=== PATIENT | female | born 1955 | race Caucasian/White ===

== ENCOUNTER 2019-05-30 22:03 | Emergency (ER) | payer BC ==
[2019-05-30 22:13] VITALS: BP 155/73; PULSE 96
[2019-05-30] MEDS ORDERED: Bacitracin Oint 1 GM U/D Packet TOP ONE (22:19)
[2019-05-30] MEDS ORDERED: Lidocaine 1% with EPINEPHrine 1:100,000 20 ML MDV INJECT ONE (22:19)
--- NOTE | 2019-05-30 22:25 | EDM.PDOC ---
ED HPI GENERAL MEDICAL PROBLEM - General Chief Complaint: Laceration Stated Complaint: FALL Time Seen by Provider: 05/30/19 22:11 - History of Present Illness INITIAL COMMENTS - FREE TEXT/NARRATIVE: HISTORY AND PHYSICAL: History of present illness: The patient is a healthy 63-year-old female who presents after having a completely normal day and stepping outside of her back door and slipping and landing cutting her right elbow. She said she landed on the elbow but has no bony pain in the elbow or the distal forearm wrist or hand or the proximal shoulder and did not hit her head pass out or blackout. She is not on any anticoagulation therapy. She denies any other injuries or trauma to her extremities or trunk and prior to these events she was in her usual state of good health without systemic issues. The patient believes she is up-to-date on tetanus shot. She said that she only came in because the wound seemed to be very open and she was concerned. She has no distal or proximal weakness tenderness or decreased range of motion of the right upper extremity Review of systems: As per history of present illness and below otherwise all systems reviewed and negative. Past medical history: As per history of present illness and as reviewed below otherwise noncontributory. Surgical history: As per history of present illness and as reviewed below otherwise noncontributory. Social history: No reported history of drug or alcohol abuse. Family history: As per history of present illness and as reviewed below otherwise noncontributory. Physical exam: General: Well-developed well-nourished female who is nontoxic and vital signs are noted by me HEENT: Atraumatic, normocephalic, pupils reactive, negative for conjunctival pallor or scleral icterus, mucous membranes moist, throat clear, neck supple, nontender, trachea midline. Lungs: Clear to auscultation, breath sounds equal bilaterally, chest nontender. Heart: S1S2, regular rate and rhythm no overt murmurs Abdomen: Soft, nondistended, nontender. NABS Pelvis: Stable nontender. No lateral hip tenderness Genitourinary: Deferred. Rectal: Deferred. Extremities: Atraumatic and full range of motion of all extremities with the exception of the right proximal forearm/elbow area on the volar surface where there are 2 lacerations, the first is very superficial and linear measuring 3 cm and the second is a J-shaped laceration measuring 3 x 2 cm with subcutaneous fat seen and macerated edges. There is some evidence of tissue loss seen There is some minimal soft tissue swelling in this region and no palpable bony deformities or foreign bodies appreciated. The legs are, negative for cords or calf pain. Neurovascular unremarkable. The patient has full range of motion of her right upper extremity including the elbow Neuro: Awake, alert, oriented. Cranial nerves II through XII unremarkable. Cerebellum unremarkable. Motor and sensory unremarkable throughout. Exam nonfocal. Diagnostics: X-ray right elbow Therapeutics: Irrigation of wound, lidocaine with epinephrine for suture repair, bacitracin and nonstick dressing sling Procedure note: It was explained to the patient that the linear laceration is very superficial and does not need repair but that the larger gaping laceration will need repair. On visual inspection there appears to be macerated edges and there is some tissue loss appreciated at the smaller section. I've inform the patient that reapproximation will not be totally complete.The wound was irrigated and cleansed by nursing and 1% lidocaine with epinephrine was infused in a local fashion. The wound was prepped and draped in sterile fashion and explored and no foreign bodies were appreciated. The wound edges were debris did minimally and the skin edges were reapproximated using simple interrupted sutures for a total number of #8 of 4-0 nylon. For the most part I was able to close the wound with only a slight tissue defect The patient tolerated the procedure well and there were no complications. Bacitracin and a dressing were applied by nursing I did discuss the x-ray findings with the patient and she did not fall on an outstretched arm and hasn't no radial head tenderness on palpation. To be conservative we will place her in a sling and give her orthopedics follow up and I've advised her to do so. She states understanding. Impression: Simple fall with right elbow laceration; asymptomatic radial head irregularity on x-ray Definitive disposition and diagnosis as appropriate pending reevaluation and review of above. lacerated area, R elbow Pain Score (Numeric/FACES): 7 - Related Data Allergies Allergy/AdvReac Type Severity Reaction Status Date / Time Penicillins Allergy Rash Verified 05/30/19 22:14 Sulfa (Sulfonamide Allergy Rash Verified 05/30/19 22:14 Antibiotics) Home Meds: Home Meds Cholecalciferol (Vitamin D3) [Vitamin D3] 1 tab PO ASDIRECTED 09/21/15 [History] Citalopram Hydrobromide [Celexa] 40 mg PO DAILY 09/21/15 [History] Multivitamin with Minerals [Multiple Vitamin] 1 tab PO DAILY 09/21/15 [History] Pravastatin Sodium 30 mg PO DAILY 09/21/15 [History] Zolpidem Tartrate 5 mg PO BEDTIME 09/21/15 [History] Zolpidem Tartrate [Ambien] 5 mg PO BEDTIME 05/30/19 [History] Past Medical History HEENT History: Reports: Impaired Vision, Other (See Below) Other HEENT History: wears glasses Cardiovascular History: Reports: High Cholesterol Respiratory History: Reports: None Gastrointestinal History: Reports: GERD, Hiatal Hernia Genitourinary History: Reports: None FAITH DOCTOR History: Reports: Endometriosis Musculoskeletal History: Reports: None Neurological History: Reports: None Psychiatric History: Reports: Anxiety, Depression Hematologic History: Reports: None Immunologic History: Reports: None Oncologic (Cancer) History: Reports: None Dermatologic History: Reports: None - Infectious Disease History Infectious Disease History: Reports: Chicken Pox - Past Surgical History Head Surgeries/Procedures: Reports: None HEENT Surgical History: Reports: None Cardiovascular Surgical History: Reports: None GI Surgical History: Reports: None Female Surgical History: Reports: Section Social & Family History - Family History Family Medical History: Noncontributory GI: Reports: Other (See Below) Other GI Family History: liver failure Oncologic: Reports: Other (See Below) Other Oncologic Family History: throat - Tobacco Use Smoking Status *Q: Never Smoker Second Hand Smoke Exposure: No - Caffeine Use Caffeine Use: Reports: Coffee Caffeine Use Comment: 1-2 daily - Recreational Drug Use Recreational Drug Use: No ED ROS GENERAL - Review of Systems Review Of Systems: Comprehensive ROS is negative, except as noted in HPI. ED EXAM, SKIN/RASH Exam: See Below (See dictation) Course - Vital Signs Last Recorded V/S: Last Vital Signs Temp 35.6 C 05/30/19 22:06 Pulse 96 05/30/19 22:06 Resp 18 05/30/19 22:06 BP 155/73 H 05/30/19 22:06 Pulse Ox 96 05/30/19 22:06 - Orders/Labs/Meds Orders: Active Orders 24 hr Category Date Time Status Communication Order [RC] STAT Care 05/30/19 22:19 Active DME for Discharge [COMM] Stat Oth 05/30/19 22:55 Ordered Meds: Medications Discontinued Medications Generic Name Dose Route Start Last Admin Trade Name Bogdan PRN Reason Stop Dose Admin Bacitracin 1 dose 05/30/19 22:19 Bacitracin Oint 1 Gm TOP 05/30/19 22:20 ONETIME ONE Lidocaine/Epinephrine 20 ml 05/30/19 22:19 Xylocaine 1% With Epinephrine 1:100,000 INJECT 05/30/19 22:20 ONETIME ONE Departure - Departure Time of Disposition: 22:57 Disposition: Home, Self-Care 01 Condition: Good Clinical Impression: Abnormal x-ray of extremity Laceration of right elbow Qualifiers: Encounter type: initial encounter Qualified Code(s): S51.011A - Laceration without foreign body of right elbow, initial encounter Fall Qualifiers: Encounter type: initial encounter Qualified Code(s): W19.XXXA - Unspecified fall, initial encounter - Discharge Information Referrals: Kirsty Anaya DO [Primary Care Provider] - Forms: ED Department Discharge Additional Instructions: The following information is given to patients seen in the emergency department who are being discharged to home. This information is to outline your options for follow-up care. We provide all patients seen in our emergency department with a follow-up referral. The need for follow-up, as well as the timing and circumstances, are variable depending upon the specifics of your emergency department visit. If you don't have a primary care physician on staff, we will provide you with a referral. We always advise you to contact your personal physician following an emergency department visit to inform them of the circumstance of the visit and for follow-up with them and/or the need for any referrals to a consulting specialist. The emergency department will also refer you to a specialist when appropriate. This referral assures that you have the opportunity for followup care with a specialist. All of these measure are taken in an effort to provide you with optimal care, which includes your followup. Under all circumstances we always encourage you to contact your private physician who remains a resource for coordinating your care. When calling for followup care, please make the office aware that this follow-up is from your recent emergency room visit. If for any reason you are refused follow-up, please contact the [facility] emergency department at and ask to speak to the emergency department charge nurse. [facility] Professional [address], [address] [place] [address] Keep the wound clean and dry for the next 24 hours and then cleanse twice a day with mild soap and water pat dry and apply bacitracin or Neosporin. The sutures need to be removed in 7 days and he may return here to the emergency department for suture removal or to your provider in the clinic. Return to ER sooner as needed and as discussed. Please use sling at all times until you're followed up in the orthopedics clinic and please connect with them and schedule a follow-up appointment this week for the abnormality seen on the x-ray that you do not have any symptoms - My Orders Last 24 Hours: My Active Orders 05/30/19 22:19 Communication Order [RC] STAT 05/30/19 22:55 DME for Discharge [COMM] Stat - Assessment/Plan Last 24 Hours: My Active Orders 05/30/19 22:19 Communication Order [RC] STAT 05/30/19 22:55 DME for Discharge [COMM] Stat
--- NOTE | 2019-05-30 22:40 | CR ---
Indication: Injury and pain Technique: Right elbow 3 views Comparison: None Findings: Bones: There is slight irregularity of the lateral aspect of the radial head with slight depression of the articular surface. Joint spaces: No dislocation. No significant joint effusion. Soft tissues: Unremarkable. Impression: Slight irregularity of the lateral aspect of the radial head with slight depression of the articular surface. Appearance is consistent with a mild impaction type fracture of the radial head. Dictated by Pavan Braga MD @ May 30 2019 10:38PM Signed by Dr. Pavan Braga @ May 30 2019 10:40PM
== END 2019-05-30 23:07 | disposition home or self-care (01) ==
LOC: MW.ED 22:03
DX: S51.011A Laceration without foreign body of right elbow, initial encounter (principal); R94.31 Abnormal electrocardiogram [ECG] [EKG]; E78.00 Pure hypercholesterolemia, unspecified; F41.9 Anxiety disorder, unspecified; F32.9 Major depressive disorder, single episode, unspecified; Z88.0 Allergy status to penicillin; Z88.2 Allergy status to sulfonamides; Z79.899 Other long term (current) drug therapy; W19.XXXA Unspecified fall, initial encounter
CPT/HCPCS: 12002; 73080-26-RT; 73080-RT; 99283; 99283-25

== ENCOUNTER 2019-06-06 15:54 | Emergency (ER) | payer BC ==
[2019-06-06 16:13] VITALS: BP 138/84; PULSE 72
== END 2019-06-06 16:15 | disposition left against medical advice (07) ==
LOC: MW.ED 15:54
DX: Z53.21 Procedure and treatment not carried out due to patient leaving prior to being seen by health care provider (principal)
CPT/HCPCS: 99281